=== PATIENT | female | born 1985 | race Caucasian/White ===

== ENCOUNTER → 2020-09-27 03:14 | Outpatient (CLI) | payer OTHER, SELFPAY ==
[2020-09-27 19:46] LABS: SARS-CoV-2 RNA PCR Negative
== END ==
PROVIDERS: Visit Provider Surgery Plastic and Reconstructive Surgery
DX: Z01.812 Encounter for preprocedural laboratory examination (principal); Z20.822 Contact with and (suspected) exposure to COVID-19
CPT/HCPCS: C9803; U0003; U0005

== ENCOUNTER 2020-10-01 00:58 | Day surgery (SDC) | payer OTHER, SELFPAY ==
[2020-09-19 11:55] VITALS: BMI 24.1
[2020-10-01] VITALS (11 sets, daily range): BP systolic 111–122; BP diastolic 68–86; PULSE 67–83; RESP 10–16; TEMP 36.7–36.8; O2SAT 96–100; BMI 25.0
[2020-10-01] MEDS: LACTATED RINGERS 1,000 ML 30 ML IV CONT ×2 (10:15→14:44)
--- NOTE | 2020-10-01 10:55 | WPDANESEPPF ---
Anes - Initial Pre Proc Eval Procedure: Operation Date: 10/01/20 12:00 Proposed Procedures p Bilateral Breast Mastopexy - Anderson Magdaleno MD Date/Time: 10/01/20 10:55 Surgeon: Anderson Magdaleno MD Pre Op Diagnosis: micromastia, breast ptosis Patient Data Age: 35 Gender: F Height: 5 ft 7 in Weight: 69.85 kg Allergies Allergy/AdvReac Type Severity Reaction Status Date / Time bacitracin Allergy Mild RASH, Verified 10/01/20 10:05 INFLAMES WOUNDS neomycin Allergy Mild RASH, Verified 10/01/20 10:05 INFLAMES WOUNDS polymyxin B Allergy Mild RASH, Verified 10/01/20 10:05 INFLAMES WOUNDS MSG Allergy Intermediate RASH, Uncoded 09/19/20 11:54 JOINT STIFFNESS, SWOLLEN Home Medications Medication Instructions Recorded Confirmed Type levonorgestrel 20 mcg/24 hours (6 1 device INTRAUTERINE ONCE 09/17/20 09/19/20 History yrs) 52 mg intrauterine device multivitamin 1 tablet PO DAILY 09/17/20 10/01/20 History docusate sodium 100 mg capsule 100 mg PO DAILY #14 cap 09/24/20 Rx ondansetron HCl 4 mg tablet 4 mg PO Q8H #21 tablet 09/24/20 Rx hydrocodone 5 mg-acetaminophen 325 1 tablet PO Q6H PRN #15 tablet 09/25/20 09/25/20 Rx mg tablet Laboratory Tests 10/01/20 10:06 Cotinine Pending Patient hx anesthesia problems: none Family hx anesthesia problems: none PMFSH Surgical History Surgical History (Updated 10/01/20 @ 10:56 by Eduard Toney MD) H/O arthroscopic knee surgery Hx of tonsillectomy Family History Family History Father Hypertension Mother Family history of elevated blood lipids Grandparent Family history of cardiovascular disease Family history of lung cancer Other No family history of diabetes mellitus Social History Social History Smoking packs per day: 0.5 Smoking cigarettes per day: 10.0 Years smoked: 6 Smoking pack-years: 3.00 Smoking status: Former smoker Tobacco type: cigarettes Smoking end date: 05/02/08 Alcohol intake: current Alcohol use details: RARE Substance use: never Substance use type: does not use Living arrangements: with family Additional living arrangements comments: CHILDREN Spiritual care concerns: No Anes - Eval Final PreProcedure Day of Procedure 10/01/20 10:55 Patient weight: normal Heart: regular rate and rhythm Lungs: clear to auscultation Airway: Mallampati scale class 1 Neurological: alert and oriented Last oral intake: >/= 8 hours ASA classification: I Emergent: no Anesthetic plan: proceed Anesthesia type and monitoring: general LMA and standard monitoring Informed Consent: The patient's anesthetic plan and its attendant risks and benefits were discussed with the patient/family/POA. Questions were solicited and answers provided to the satisfaction of the patient/family/POA.
--- NOTE | 2020-10-01 11:35 | WPDHPUPDATE1 ---
History and Physical Update Update Date/Time: 10/01/20 11:35 History and Physical has been reviewed, including an updated exam of the patient. There are NO changes in the patient's condition. Risks, benefits, and alternatives have been discussed and questions answered. Patient agrees to proceed with procedure.
--- NOTE | 2020-10-01 11:52 | PM.PROC ---
Procedure Note - Detailed Date of procedure: 10/01/20 Pre-op diagnosis: micromastia, breast ptosis Post-op diagnosis: same Procedure performed: Bilateral mastopexy with Galaflex Description of procedure: Risks, benefits, alternatives were again discussed with the patient and . I want them to be very realistic about the risks involved as well as expectations. She would like proceed with second-stage augmentation in the future. All questions answered to her and her satisfaction. Consent obtained. Patient was marked in the preoperative holding area with her verification. She was taken to the operating room placed supine on the operating room table. Anesthesia provided by anesthesiology and prepped and draped in a standard sterile fashion. Surgical time-out was taken. 1% lidocaine and 0.25% Marcaine with epinephrine was used anesthetize locally. I tailor tacked the breast into position and verified my markings. I marked the nipple-areolar complex at 38 mm in a sitting position. This was based on preoperative markings measurements and intraoperative measurements and observations which were all in full agreement. She was placed supine. Superior medial pedicle was de-epithelialized. I then removed a portion of the central keel as well as inferior portion and plan for future implants. Remaining inferior flap proceeded auto augmentation fashion. This was sutured to the chest wall using a 2 PDS. I created medial and lateral flaps and these were elevated the position. Galaflex was soaking in a triple antibiotic Betadine solution. Trimmed as necessary. Deep to this I sutured the Galaflex into position to provide support using 3-0 Vicryl. I closed using 2-0 PDS to reapproximate the pedicles and along the IMF. This is followed by 3-0 strata fix on the IMF and 3-0 Monocryl vertically. Also 3-0 Monocryl around the areola. Finally running subcuticular 4-0 Monocryl and tissue glue. Anesthesia: GLMA Surgeon: Anderson Magdaleno MD Estimated blood loss (mL): 100 Drains: No Packing: No Pathology: none sent Complications: No immediate complications Condition: stable Disposition: PACU Findings: Inverted T Superior medial pedicle Galaflex REF# [id number] Lot# [id number]
[2020-10-01] MEDS: ceFAZolin 2 GM/D5W 50 ML 2 GM/50 ML BAG IVPB (12:06)
[2020-10-01] MEDS: BUPIVACAINE HCL 0.25% PF 30 ML VIAL INFILTRATE (12:06)
[2020-10-01] MEDS: LIDO 1%/EPINEPHRINE 1:100,000 50 ML VIAL 30 ML INFILTRATE (12:58)
--- NOTE | 2020-10-01 13:53 | SUR.OPER ---
txa given by anesthesia @[id number]
--- NOTE | 2020-10-01 14:24 | SUR.OPER ---
EBL:100cc
[2020-10-01] MEDS: oxyCODONE HCL (*CRX) 5 MG TAB IR PO (15:40)
[2020-10-02 15:42] LABS: Urine Cotinine NEGATIVE
== END 2020-10-01 16:22 | disposition home or self-care (01) ==
PROVIDERS: PCP Physician Assistant Medical; Visit Provider Surgery Plastic and Reconstructive Surgery
PROC: (CPT 19316; principal; 2020-10-01 12:00)
DX: Z41.1 Encounter for cosmetic surgery (principal); N64.82 Hypoplasia of breast; N64.81 Ptosis of breast; Z79.899 Other long term (current) drug therapy; Z87.891 Personal history of nicotine dependence
CPT/HCPCS: 19316; 15777 ×2; 80307; A9270; J0690; J1100; J1170; J1580; J2250; J2405; J2704; J3010; J7120

== ENCOUNTER → 2020-11-08 00:26 | Outpatient (CLI) | payer OTHER, SELFPAY ==
[2020-11-08 21:20] LABS: SARS-CoV-2 RNA PCR Negative
== END ==
PROVIDERS: PCP Physician Assistant Medical; Visit Provider Surgery Plastic and Reconstructive Surgery
DX: Z01.812 Encounter for preprocedural laboratory examination (principal); Z20.822 Contact with and (suspected) exposure to COVID-19
CPT/HCPCS: C9803; U0003; U0005

== ENCOUNTER 2020-11-12 05:56 | Day surgery (SDC) | payer OTHER, SELFPAY ==
[2020-10-24 10:04] VITALS: BMI 24.1
--- NOTE | 2020-11-11 09:21 | WPDANESEPPF ---
Anes - Initial Pre Proc Eval Procedure: Operation Date: 11/12/20 07:30 Proposed Procedures p Bilateral Breast Augmentation Mammoplasty - Anderson Magdaleno MD Date/Time: 11/11/20 09:21 Surgeon: Anderson Magdaleno MD Pre Op Diagnosis: Micromastia Patient Data Age: 35 Gender: F Height: 1.7 m Weight: 70 kg Allergies Allergy/AdvReac Type Severity Reaction Status Date / Time bacitracin Allergy Mild RASH, Verified 11/12/20 06:23 INFLAMES WOUNDS neomycin Allergy Mild RASH, Verified 11/12/20 06:23 INFLAMES WOUNDS polymyxin B Allergy Mild RASH, Verified 11/12/20 06:23 INFLAMES WOUNDS MSG Allergy Intermediate RASH, Uncoded 11/12/20 06:23 JOINT STIFFNESS, SWOLLEN Home Medications Medication Instructions Recorded Confirmed Type levonorgestrel 20 mcg/24 hours (6 1 device INTRAUTERINE ONCE 09/17/20 11/12/20 History yrs) 52 mg intrauterine device multivitamin 1 tablet PO DAILY 09/17/20 11/12/20 History carisoprodol 350 mg tablet 350 mg PO TID PRN #21 tablet 10/22/20 11/12/20 Rx docusate sodium 100 mg capsule 100 mg PO DAILY #14 cap 10/22/20 11/12/20 Rx ondansetron HCl 4 mg tablet 4 mg PO Q8H #21 tablet 10/22/20 11/12/20 Rx oxycodone-acetaminophen 5 mg-325 1 tablet PO Q6H PRN #15 tablet 10/22/20 11/12/20 Rx mg tablet Patient hx anesthesia problems: none Family hx anesthesia problems: none PMFSH Surgical History Surgical History H/O arthroscopic knee surgery Hx of tonsillectomy Family History Family History Father Hypertension Mother Family history of elevated blood lipids Grandparent Family history of cardiovascular disease Family history of lung cancer Other No family history of diabetes mellitus Social History Social History Smoking packs per day: 0.5 Smoking cigarettes per day: 10.0 Years smoked: 6 Smoking pack-years: 3.00 Smoking status: Former smoker Tobacco type: cigarettes Smoking end date: 05/02/08 Alcohol intake: never Drinks per week: 2 Alcohol use details: RARE Substance use: never Substance use type: does not use Living arrangements: with family Additional living arrangements comments: CHILDREN Gender identity (if verbalized by the patient): Female Spiritual care concerns: No Anes - Eval Final PreProcedure Day of Procedure 11/11/20 09:21 Patient weight: normal Heart: regular rate and rhythm Lungs: clear to auscultation and normal air movement Airway: Mallampati scale class 1 Neurological: alert and oriented Last oral intake: >/= 8 hours ASA classification: II Emergent: no Anesthetic plan: proceed Anesthesia type and monitoring: general LMA and standard monitoring Informed Consent: The patient's anesthetic plan and its attendant risks and benefits were discussed with the patient/family/POA. Questions were solicited and answers provided to the satisfaction of the patient/family/POA.
[2020-11-12 06:15] VITALS: BP 102/72; PULSE 68; RESP 20; TEMP 36.3; O2SAT 100
[2020-11-12] MEDS: LACTATED RINGERS 1,000 ML 30 ML IV CONT ×2 (06:33→08:26)
[2020-11-12] MEDS: SCOPOLAMINE 1.5 MG PATCH TRANSDERM (06:33)
[2020-11-12] MEDS: FAMOTIDINE 20 MG/2 ML VIAL IV PUSH (06:33)
[2020-11-12 06:37] VITALS: BMI 24.2
--- NOTE | 2020-11-12 06:55 | WPDHPUPDATE1 ---
History and Physical Update Update Date/Time: 11/12/20 06:55 History and Physical has been reviewed, including an updated exam of the patient. There are NO changes in the patient's condition. Risks, benefits, and alternatives have been discussed and questions answered. Patient agrees to proceed with procedure.
--- NOTE | 2020-11-12 06:55 | W.PM.PROC2 ---
Procedure Note - Detailed Date of Procedure 11/12/20 Pre-op Diagnosis Micromastia Post-op Diagnosis same Procedure Performed Bilateral Augmentation Mammaplasty Surgeon Anderson Magdaelno MD Anesthesia general Findings Bilateral Faye Mckeon SoftTouch Implants 320cc Dual Plane 1 Right - REF# [id number] SN [id number] - REF# [id number] SN [id number] Description of Procedure She is here today for bilateral breast augmentation as a staged procedure after previous mastopexy. Previously and again today the risks, benefits, alternatives were discussed in extensive detail. I wanted her to be very realistic about the risks involved as well as expectations. We discussed aftercare and what to monitor for. Made sure answered all of her questions to her satisfaction today and consent was obtained. Marked in the preoperative holding area with their verification. The patient was taken to the operating room placed supine on the operating table. Anesthesia was provided by anesthesiology. A surgical time-out was taken. We cleansed the skin and 1% lidocaine and 0.25% Marcaine with epinephrine was used anesthetize as a field block. She was prepped and draped in a standard sterile fashion. Tegaderm nipple Varma were placed. A 15 blade used to make an incision along the inframammary fold. Dissection was continued at 45 degree angle until the chest wall as identified. I incised the pectoralis major along its inferior border and completely released the inferior border leaving the medial border intact. I created a subpectoral pocket in the appropriate dimensions based on our preoperative planning for the implant. I then copiously irrigated with saline solution and verified a strict hemostasis. Next the use a triple antibiotic and Betadine containing solution to irrigate the pocket. I washed my gloves with the triple antibiotic and Betadine solution. We washed the implant immediately upon opening it with this solution and only opened it when we needed it. I used implant funnel and no-touch technique. The implant was introduced into the pocket using the funnel. Having verified positioning of the implant this was closed using 2-0 Vicryl followed by 3-0 Monocryl in a running subcuticular 4-0 Monocryl followed by tissue glue. Fluffs, Juan wrap, and surgical bra were placed. Patient was awoke and taken to PACU without difficulty. All instrument sponge counts were correct at the end of the case. Estimated Blood Loss 20 Drains No Packing No Pathology none sent Complications No immediate complications Condition stable Disposition PACU
[2020-11-12] MEDS: ceFAZolin SODIUM 2 GM/20 ML SW SYRINGE IV PUSH (07:10)
[2020-11-12] MEDS: BUPIVACAINE HCL 0.25% 50 ML VIAL 30 ML INFILTRATE (08:09)
[2020-11-12] MEDS: LIDO 1%/EPINEPHRINE 1:100,000 20 ML VIAL 30 ML INFILTRATE (08:11)
[2020-11-12 08:26] VITALS: BP 102/77; PULSE 92; RESP 13; TEMP 36.1; O2SAT 100
[2020-11-12 08:41] VITALS: BP 107/78; PULSE 76; RESP 13; O2SAT 100
[2020-11-12 08:51] VITALS: BP 108/70; PULSE 78; RESP 14; O2SAT 100
[2020-11-12 08:52] VITALS: BP 99/68; PULSE 79; RESP 16; O2SAT 100
--- NOTE | 2020-11-12 09:03 | WPDANESPN ---
Anes - Prog Note Post-Op Date/Time: 11/12/20 09:03 Cardiovascular status: normal Respiratory status: normal Airway patency: baseline Mental status: baseline Post-Op hydration status: normal Vital Signs: Last Vital Signs Temp 36.1 C L 11/12/20 08:26 Pulse 78 11/12/20 08:51 Resp 14 11/12/20 08:51 BP 108/70 11/12/20 08:51 Pulse Ox 100 11/12/20 08:51 Pain Score (VAS): 0 Post-procedural complaints: none Patient Feedback: Patient satisfied with anesthetic care. Other Findings: Patient vital signs back to baseline. Patient denies nausea and vomiting. Patient's pain under control. Patient OK for discharge.
[2020-11-12] MEDS: oxyCODONE HCL (*CRX) 5 MG TAB IR PO (09:08)
[2020-11-12 09:21] VITALS: BP 107/72; PULSE 67; RESP 22
== END 2020-11-12 09:48 | disposition home or self-care (01) ==
PROVIDERS: PCP Physician Assistant Medical; Visit Provider Surgery Plastic and Reconstructive Surgery
PROC: (CPT 19325; principal; 2020-11-12 07:30)
DX: N64.82 Hypoplasia of breast (principal)
CPT/HCPCS: 19325

== ENCOUNTER 2022-01-25 15:18 | Emergency (ER) | payer OTHER, SELFPAY ==
[2022-01-25 15:42] VITALS: BP 126/82; PULSE 76; RESP 18; TEMP 36.9; O2SAT 100
--- NOTE | 2022-01-25 16:00 | ED.SKABFB ---
HPI - Skin/Abscess/Foreign Bdy General Chief complaint: Skin/Abscess/Foreign Body Stated complaint: rash Time Seen by Provider: 01/25/22 16:00 Source: patient Mode of arrival: ambulatory Limitations: no limitations History of Present Illness HPI narrative: 36-year-old female presented for complaint of skin change to right lower leg for 3 weeks. She endorses the site started as a mosquito bite but has increased in size and become more red. She has been applying hydrocortisone cream with minimal relief. She denies lip, tongue, throat swelling, shortness of breath or wheezing. She also states she has 1 additional reddened area to the right upper thigh which she says started as a hive, she states she took a Benadryl and it improved and is now in a red line, but has been present for about 1 week. Denies changes to lotion, soap, detergent or other exposures etc. Denies sick contacts. Related Data Home Medications Medication Instructions Recorded Confirmed levonorgestrel 20 mcg/24 hours (7 1 device intrauterine ONCE 09/17/20 01/25/22 yrs) 52 mg intrauterine device (Mirena) multivitamin 1 tablet PO DAILY 09/17/20 01/25/22 Allergies Allergy/AdvReac Type Severity Reaction Status Date / Time bacitracin Allergy Mild RASH, Verified 01/25/22 15:48 INFLAMES WOUNDS neomycin Allergy Mild RASH, Verified 01/25/22 15:48 INFLAMES WOUNDS polymyxin B Allergy Mild RASH, Verified 01/25/22 15:48 INFLAMES WOUNDS MSG Allergy Intermediate RASH, Uncoded 01/25/22 15:48 JOINT STIFFNESS, SWOLLEN Review of Systems Review of Systems: CONSTITUTIONAL: Denies body aches, fever, chills, or sweats. EYES: Denies visual changes, redness, or discharge. CARDIOVASCULAR: Denies chest pain, palpitations, or edema. RESPIRATORY: Denies cough or dyspnea. GASTROINTESTINAL: Denies abdominal pain, nausea, vomiting, or diarrhea. SKIN: reports right lower leg skin lesion MUSCULOSKELETAL: Denies back pain, joint pain, or myalgia. NEUROLOGIC: Denies headache, numbness, tingling, or weakness. [facility] Past Medical History Medical History delivery delivered 05-01-2014 delivery delivered 06-06-2012 Encounter for breast augmentation 2020 Surgical History Surgical History H/O arthroscopic knee surgery H/O gynecological procedure Mirena iud removal / reinsertion 04/30/2019 History of dilation and curettage D&C-missed AB, RH negative Hx of tonsillectomy [place] teeth removed Family History Family History Father Hypertension Mother Family history of elevated blood lipids Grandparent Family history of cardiovascular disease Family history of lung cancer Other No family history of diabetes mellitus Social History Social History Smoking packs per day: 0.5 Smoking cigarettes per day: 10.0 Years smoked: 6 Smoking pack-years: 3.00 Smoking status: Former smoker Tobacco type: cigarettes Smoking end date: 05/02/08 Alcohol intake: never Alcohol use details: RARE Substance use: never Substance use type: does not use Additional living arrangements comments: CHILDREN Additional occupation/education comments: Teacher Gender identity (if verbalized by the patient): Female Spiritual care concerns: No Comments At time of signature, I have reviewed and agree with nursing past medical, surgical, social and family history unless otherwise noted. Please see nursing chart for further information. There is no relevant family history pertinent to the presenting complaint Exam Narrative: GENERAL: Well-appearing HEAD: Normocephalic, atraumatic. EYES: conjunctivae clear, and EOMI. ENT: Mucous membranes moist. Oropharynx without edema,
== END 2022-01-25 16:18 | disposition home or self-care (01) ==
PROVIDERS: Emergency Provider Nurse Practitioner Family; PCP Physician Assistant Medical
DX: L30.9 Dermatitis, unspecified (principal); Z87.891 Personal history of nicotine dependence
CPT/HCPCS: 99213; G0463

== ENCOUNTER 2022-10-18 00:34 | Day surgery (SDC) | payer OTHER, SELFPAY ==
[2022-10-08 14:09] VITALS: BMI 23.5
--- NOTE | 2022-10-08 14:13 | PC.NURSE ---
Report to the Outpatient Waiting Room, entrance under the green pavilion located off [facility], at time 1000 on date 10/18/22. Planned Procedure Time: 1200. Time changes happen often and if your time is changed the preop area will call you the afternoon before. - You and your visitor will be asked to self-screen and do not enter if you have any COVID symptoms. - A mask is optional within the hospital at this time. Patients may have clear liquids (water, carbonated beverages, clear teas, apple juice) until 3 hours prior to surgery with a maximum of 20 ounces. - No food from midnight until time of surgery Take the following medications with a SIP of water the morning of surgery: NONE DO NOT STOP ANY OF YOUR OTHER PRESCRIPTION MEDICATIONS PRIOR TO SURGERY ?EXCEPT THE FOLLOWING Medications to discontinue per physician: VITAMIN Date to take last dose: 10/14/22 Please no make-up, nail gibraltarian, hairspray, perfume, deodorant, or body powder the day of surgery. No jewelry (including any body piercings) or valuables the day of surgery, leave them at home. Please take a shower or bath the night before, or the morning of, surgery with an antibacterial soap (HIBICLENS). Wear comfortable, loose fitting clothing. - Jewelry must be removed prior to entering the operating room. Rings and piercings that are not removed may be cut off. - The hospital will not accept responsibility for valuables. - Please leave all valuables, including medications, at home the day of surgery. If you are going home after surgery, a licensed crude oil driver must drive you home. - NO public transportation without another adult if you receive anesthesia. - We recommend that an adult stay with you for 24 hours following discharge. - We also recommend that you do not drive, make important decision, drink alcoholic beverages, or take any drugs that were not prescribed by your health care provider for at least 24 hours after your discharge time. Follow any additional instructions given to you from your surgeon. If you or anyone in your household have experienced Covid symptoms in the past week, please notify your surgeon or the nurse liaison at the phone number below for possible testing. Telephone instructions given to PT Deepthi WRIGHT and asked if any additional questions and then verbalized understanding. Patient advised to call surgeon office or pre surgery nurse liaison [phone] if any additional questions.
--- NOTE | 2022-10-18 10:05 | PM.IMHP ---
H&P: HPI History of Present Illness Date/Time: 10/18/22 10:05 Chief Complaint: umbilical hernia Narrative: Tamie is a 37 y/o female who presented to the office at the request of Dr. Wilcox for evaluation of an umbilical hernia. Patient states she first noticed some tenderness above her umbilicus ~3-4 months ago. She does experience occasional discomfort with exercising or if her kids come up to give her a hug. She does not notice any bulging. Review of Systems Review of Systems: All systems reviewed & are unremarkable except as noted in HPI and below PMFSH Past Medical History Medical History Anxiety Skin lesion Surgical History Surgical History delivery delivered 05-01-2014 delivery delivered 06-06-2012 Encounter for breast augmentation 2020 H/O arthroscopic knee surgery H/O gynecological procedure Mirena iud removal / reinsertion 04/30/2019 History of dilation and curettage D&C-missed AB, RH negative Hx of tonsillectomy [place] teeth removed Family History Family History Father Hypertension Mother Family history of elevated blood lipids Grandparent Family history of cardiovascular disease Family history of lung cancer Other No family history of diabetes mellitus Social History Social History Smoking packs per day: 1 Smoking cigarettes per day: 20.0 Years smoked: 6 Smoking pack-years: 6.00 Smoking status: Former smoker Tobacco type: cigarettes Smoking end date: 05/02/06 Alcohol intake: current Alcohol use details: 1/MONTH Substance use: never Substance use type: does not use Living arrangements: with family Additional living arrangements comments: CHILDREN Occupation/Education: occupation Additional occupation/education comments: Teacher Gender identity (if verbalized by the patient): Female Spiritual care concerns: No Meds Home Medications and Allergies Home Medications Medication Instructions Recorded Confirmed Type levonorgestrel 21 mcg/24 hours (8 1 device intrauterine ONCE 09/17/20 10/08/22 History yrs) 52 mg intrauterine device (Mirena) multivitamin 1 tablet PO DAILY 09/17/20 10/08/22 History semaglutide (weight loss) 0.25 0.25 mg subcut WEEKLY 01/28/22 10/08/22 History mg/0.5 mL subcutaneous pen injector Allergies Allergy/AdvReac Type Severity Reaction Status Date / Time bacitracin Allergy Mild RASH, Verified 10/08/22 14:08 INFLAMES WOUNDS neomycin Allergy Mild RASH, Verified 10/08/22 14:08 INFLAMES WOUNDS polymyxin B Allergy Mild RASH, Verified 10/08/22 14:08 INFLAMES WOUNDS MSG Allergy Intermediate RASH, Uncoded 10/08/22 14:08 JOINT STIFFNESS, SWOLLEN Exam Const: General: cooperative, comfortable and no acute distress Resp: Auscultation: clear to auscultation bilaterally Cardio: Rate: regular rate Rhythm: regular rhythm GI: Inspection: normal to inspection and non-distended GI Palp: Yes abdominal tenderness, Yes Soft to palpation, Yes Tenderness to palpation present (GI), No Guarding due to palpation present (GI), No Rigid due to palpation and Yes Hernia present Other: 2 cm umiblical hernia - reducible, mild TTP Assessment and Plan Assessment and plan (1) Umbilical hernia: Qualifiers: Obstruction and gangrene presence: without obstruction or gangrene Qualified Code(s): K42.9 - Umbilical hernia without obstruction or gangrene Code(s): K42.9 - Umbilical hernia without obstruction or gangrene Status: Acute Assessment and Plan: will setup for open repair c mesh
--- NOTE | 2022-10-18 10:06 | WPDHPUPDATE1 ---
History and Physical Update Update Date/Time: 10/18/22 10:06 History and Physical has been reviewed, including an updated exam of the patient. There are NO changes in the patient's condition. Risks, benefits, and alternatives have been discussed and questions answered. Patient agrees to proceed with procedure.
--- NOTE | 2022-10-18 10:52 | WPDANESEPPF ---
Anes - Initial Pre Proc Eval Procedure: Operation Date: 10/18/22 12:00 Proposed Procedures p Open Umbilical Hernia Repair - Janelle Molina MD Date/Time: 10/18/22 10:52 Surgeon: Janelle Molina MD Pre Op Diagnosis: Umb Hernia Patient Data Age: 37 Gender: F Height: 1.7 m Weight: 68.1 kg Allergies Allergy/AdvReac Type Severity Reaction Status Date / Time bacitracin Allergy Mild RASH, Verified 10/08/22 14:08 INFLAMES WOUNDS neomycin Allergy Mild RASH, Verified 10/08/22 14:08 [employer]OUNDS polymyxin B Allergy Mild RASH, Verified 10/08/22 14:08 [employer]FL[employer] WOUNDS MSG Allergy Intermediate RASH, Uncoded 10/08/22 14:08 JOINT STIFFNESS, SWOLLEN Home Medications Medication Instructions Recorded Confirmed Type levonorgestrel 21 mcg/24 hours (8 1 device intrauterine ONCE 09/17/20 10/08/22 History yrs) 52 mg intrauterine device (Mirena) multivitamin 1 tablet PO DAILY 09/17/20 10/08/22 History semaglutide (weight loss) 0.25 0.25 mg subcut WEEKLY 01/28/22 10/08/22 History mg/0.5 mL subcutaneous pen injector Patient hx anesthesia problems: none Family hx anesthesia problems: none Results Review: All pre-operative results and documents have been reviewed as part of the pre-operative evaluation. [facility] Past Medical History Medical History Anxiety Skin lesion Surgical History Surgical History delivery delivered 05-01-2014 delivery delivered 06-06-2012 Encounter for breast augmentation 2020 H/O arthroscopic knee surgery H/O gynecological procedure Mirena iud removal / reinsertion 04/30/2019 History of dilation and curettage D&C-missed AB, RH negative Hx of tonsillectomy [place] teeth removed Family History Family History Father Hypertension Mother Family history of elevated blood lipids Grandparent Family history of cardiovascular disease Family history of lung cancer Other No family history of diabetes mellitus Social History Social History Smoking packs per day: 1 Smoking cigarettes per day: 20.0 Years smoked: 6 Smoking pack-years: 6.00 Smoking status: Former smoker Tobacco type: cigarettes Smoking end date: 05/02/06 Alcohol intake: current Alcohol use details: 1/MONTH Substance use: never Substance use type: does not use Living arrangements: with family Additional living arrangements comments: CHILDREN Occupation/Education: occupation Additional occupation/education comments: Teacher Gender identity (if verbalized by the patient): Female Spiritual care concerns: No Anes - Eval Final PreProcedure Day of Procedure 10/18/22 10:52 Patient weight: normal Heart: regular rate and rhythm Lungs: clear to auscultation Airway: Mallampati scale class 1 Neurological: alert and oriented Last oral intake: >/= 8 hours ASA classification: II Emergent: no Anesthetic plan: proceed Anesthesia type and monitoring: general LMA and standard monitoring Results Review: All pre-operative results and documents have been reviewed as part of the pre-operative evaluation. Informed Consent: The patient's anesthetic plan and its attendant risks and benefits were discussed with the patient/family/POA. Questions were solicited and answers provided to the satisfaction of the patient/family/POA.
[2022-10-18 10:54] VITALS: BP 109/68; PULSE 71; RESP 14; TEMP 36.3; O2SAT 100
[2022-10-18] MEDS: KETOROLAC 15 MG/ML VIAL (*BKC) IV PUSH (10:55)
[2022-10-18] MEDS: ACETAMINOPHEN 500 MG TABLET 1000 MG PO (10:55)
[2022-10-18] MEDS: LACTATED RINGERS 1,000 ML 30 ML IV CONT (10:59)
[2022-10-18] MEDS: ceFAZolin 2 GM/D5W 50 ML 2 GM/50 ML BAG IVPB (12:05)
[2022-10-18] MEDS: BUPIVACAINE/EPINEPHRINE 0.5% 50 ML VIAL 30 ML INFILTRATE (12:05)
[2022-10-18 12:34] VITALS: BP 98/48; PULSE 96; RESP 14; O2SAT 99
[2022-10-18 13:05] VITALS: BP 114/53; PULSE 75
--- NOTE | 2022-10-18 13:05 | W.PM.PROC2 ---
Procedure Note - Detailed Date of Procedure 10/18/22 Pre-op Diagnosis umbilical hernia Post-op Diagnosis Same Procedure Performed primary repair of umbilical hernia measuring 2 cm Surgeon Janelle Molina MD Anesthesia General Indications 37 y/o F c symptomatic umbilical hernia measuring 2 cm Findings 2 cm umbilical hernia Description of Procedure The patient was taken to the operating room placed in the supine position. After adequate induction of general anesthesia, the patient was prepped and draped in the normal sterile fashion. A time-out was then done to verify the patient's identity, as well as the procedure being performed. I began by localizing the area around the umbilicus. I then made a curvilinear incision in the infraumbilical fold. This was taken down to level fascia. I then was able to bluntly dissect around the umbilicus. I then carefully dissected the umbilicus off the underlying fascia. I then noted a small defect with incarcerated omentum. I was able to mobilize the incarcerated tissue and reduce it back into the abdominal cavity. This left an approximately 2 cm defect. I then closed this defect primarily with interrupted 0 Ethibond suture. I then reapproximated the umbilicus to the fascia with a 3 0 Vicryl U-stitch. The subcutaneous tissue was then closed with 3 0 Vicryl suture. The skin was closed with 4 0 Monocryl subcuticular suture. Dermabond was then placed on the wound. The patient tolerated the procedure well was extubated in the operating room postop. She will be transferred to the recovery room in stable condition. Estimated Blood Loss 5 Drains No Packing No Pathology None sent Complications No immediate complications Condition Stable Disposition PACU [facility] Billing Surgery - Charge Forward: Surgery Billing
[2022-10-18 13:30] VITALS: BP 103/64; PULSE 64
== END 2022-10-18 13:40 | disposition home or self-care (01) ==
PROVIDERS: PCP Physician Assistant Medical; Visit Provider Surgery
PROC: (CPT 49591; principal; 2022-10-18 12:00)
DX: K42.9 Umbilical hernia without obstruction or gangrene (principal); Z79.899 Other long term (current) drug therapy; Z87.891 Personal history of nicotine dependence
CPT/HCPCS: 49591; A9270; J0690; J1885; J2250; J2704; J3010; J7120

== ENCOUNTER 2025-01-24 15:07 | Outpatient (CLI) | payer OTHER, SELFPAY ==
--- NOTE | ~2025-01-24 | MM_ITS ---
EXAMINATION: MM screening bambi BI w aisha HISTORY: Screening TECHNIQUE: Craniocaudal and mediolateral oblique 3-D tomosynthesis images were obtained and synthetic 2-D images were generated. CAD analysis was submitted and interpreted. Implant displacement views were obtained. COMPARISON: No prior mammogram is available for comparison at this institution. BREAST PARENCHYMAL COMPOSITION: The breasts are extremely dense, which lowers the sensitivity of mammography. FINDINGS: There is no evidence of suspicious mass, calcification, or architectural distortion to suggest malignancy in either breast. There are bilateral breast implants. IMPRESSION: 1. No mammographic evidence of malignancy. Recommend routine screening mammography in one year. BI-RADS Category 1: Negative Reviewed, dictated and finalized at location [facility]. IMPRESSION: 1. No mammographic evidence of malignancy. Recommend routine screening mammogra phy in one year. BI-RADS Category 1: Negative
== END 2025-01-24 15:08 | disposition home or self-care (01) ==
LOC: ANHFOHIMG 15:07
PROVIDERS: PCP Physician Assistant Medical; Visit Provider Student in an Organized Health Care Education/Training Program
DX: Z12.31 Encounter for screening mammogram for malignant neoplasm of breast (principal)
CPT/HCPCS: 77063; 77067